=== PATIENT | female | born 1990 | race African-American/Black ===

== ENCOUNTER 2018-08-09 13:20 | Emergency (ER) | payer MEDICAID | END 2018-08-09 19:54 | disposition left against medical advice (07) | LOC: ER 13:20 → CANBEDREQ 15:12 → ER 19:54 | DX: R11.2 Nausea with vomiting, unspecified (principal); R10.9 Unspecified abdominal pain; Z53.21 Procedure and treatment not carried out due to patient leaving prior to being seen by health care provider ==